=== PATIENT | female | born 1975 | race African-American/Black ===

== ENCOUNTER 2024-01-05 15:56 | Emergency (ER) | payer MEDICAID ==
[~2024-01-05] VITALS: Ht 162.6 cm; Wt 64.0 kg
[2024-01-05] MEDS: HYDROcodone/acetaminophen 5mg/325mg tablet PO ONE (18:03)
[2024-01-05] MEDS: ketorolac trometh 30MG/ML vial 30 MG/ML VIAL IM ONE (18:04)
[2024-01-05] MEDS ORDERED: NAPR-56 PO (18:40)
[2024-01-05 19:00] VITALS: BP 110/64; PULSE 95; RESP 16; TEMP 98.9; O2SAT 97
== END 2024-01-05 19:02 | disposition home or self-care (01) ==
LOC: ER 15:57
DX: M79.605 Pain in left leg (principal); Z79.1 Long term (current) use of non-steroidal anti-inflammatories (NSAID)
CPT/HCPCS: 73590; 73610; 96372; 99284; J1885; A6449

== ENCOUNTER 2024-02-18 13:33 | Emergency (ER) | payer MEDICAID ==
[~2024-02-18] VITALS: Ht 162.6 cm; Wt 79.5 kg
[2024-02-18] MEDS ORDERED: HYDR-3965 PO (14:13)
[2024-02-18] MEDS: HYDROcodone/acetaminophen 5mg/325mg tablet PO ONE (14:20)
[2024-02-18 14:25] VITALS: BP 124/66; PULSE 81; RESP 16; TEMP 98; O2SAT 98
== END 2024-02-18 14:27 | disposition home or self-care (01) ==
LOC: ER 13:34
DX: K05.30 Chronic periodontitis, unspecified (principal); Z79.899 Other long term (current) drug therapy
CPT/HCPCS: 99283